=== PATIENT | male | born 1950 | race Caucasian/White ===

== ENCOUNTER 2016-11-08 16:49 | Emergency (ER) | payer MEDICARE, OTHER ==
[~2016-11-08] VITALS: Ht 180.3 cm; Wt 83.0 kg
[~2016-11-08 16:49] MED LIST: ACETAMINOPHEN500 MG PO; AQUAPHOR99 GM TOP; BENADRYL25 MG PO; BETAMETHASONE V15 G1 TOP; BETAMETHASONE V60 ML TOP; CETIRIZINE HCL10 MG PO; COUMADIN4 MG PO; COUMADIN5 MG PO; DILANTIN100 MG PO; KETOCONAZOLE15 GM TOP; LAC HYDRIN TOP; LACTULOSE10 GM/15 M PO; LASIX20 MG PO; LISINOPRIL10 MG PO; LOVENOX100 MG SUB-Q; METOPROLOL TART25 MG PO; MONTELUKAST SOD10 MG PO; MUPIROCIN22 GM TOP; NORCO 5-325 TA1 EACH PO; PRAVACHOL40 MG PO; PROZAC20 MG PO; PROZAC40 MG PO; TEMOVATE30 GM TOP; TRIAMCINOLONE A15 G1 TOP; VISTARIL50 MG PO; WARFARIN SODIUM4 MG PO; WARFARIN SODIUM5 MG PO; [UNRECOGNIZED DRUG - SUPPLY] TOP
[2016-11-08] MEDS ORDERED: WARFARIN SODIUM5 MG PO (17:16)
[2016-11-08] MEDS ORDERED: PROZAC40 MG PO (17:22)
[2016-11-08] MEDS ORDERED: ACID CONTROLLER20 MG PO (18:16)
[2016-11-08] MEDS ORDERED: BENADRYL25 MG PO (18:16)
[2017-01-31] MEDS ORDERED: BETAMETHASONE V15 G1 TOP (11:50)
== END 2016-11-08 18:38 | disposition home or self-care (01) ==
LOC: ED 16:49
DX: T78.3XXA Angioneurotic edema, initial encounter (principal); G40.909 Epilepsy, unspecified, not intractable, without status epilepticus; I73.9 Peripheral vascular disease, unspecified; Z95.0 Presence of cardiac pacemaker; Z86.73 Personal history of transient ischemic attack (TIA), and cerebral infarction without residual deficits; Z89.512 Acquired absence of left leg below knee; Z88.5 Allergy status to narcotic agent; Z79.01 Long term (current) use of anticoagulants; Z79.899 Other long term (current) drug therapy
CPT/HCPCS: 99283

== ENCOUNTER 2019-03-30 06:58 | Emergency (ER) | payer MEDICARE, OTHER ==
[~2019-03-30] VITALS: Ht 180.3 cm; Wt 83.0 kg
[~2019-03-30 06:58] MED LIST changes: +ACID CONTROLLER20 MG PO; +AMLODIPINE BESY10 MG PO; +CLONIDINE HCL0.1 MG PO; +DOXAZOSIN MESYLA8 MG PO; +LISINOPRIL20 MG PO; +METOPROLOL TART50 MG PO; +NORVASC5 MG PO; +VITAMIN A & D113 GM TOP
[2019-03-30] MEDS ORDERED: KEFLEX500 MG PO (08:35)
== END 2019-03-30 09:57 | disposition home or self-care (01) ==
LOC: ED 06:58
DX: L03.115 Cellulitis of right lower limb (principal); I69.920 Aphasia following unspecified cerebrovascular disease; I10 Essential (primary) hypertension; F32.9 Major depressive disorder, single episode, unspecified; D64.9 Anemia, unspecified; G40.909 Epilepsy, unspecified, not intractable, without status epilepticus; Z88.5 Allergy status to narcotic agent; Z88.8 Allergy status to other drugs, medicaments and biological substances; Z79.899 Other long term (current) drug therapy; Z79.01 Long term (current) use of anticoagulants
CPT/HCPCS: 36415; 70450; 80053; 80185; 84484; 85025; 85610; 99285-25; A9270

== ENCOUNTER 2021-04-25 18:13 | Emergency (ER) | payer MEDICARE, OTHER ==
[~2021-04-25] VITALS: Ht 180.3 cm; Wt 83.0 kg
[~2021-04-25 18:13] MED LIST changes: +CLARITIN10 M2 PO; +KEFLEX500 MG PO; +LASIX40 MG PO; +WARFARIN SODIU2.5 MG PO
[2021-04-25] MEDS ORDERED: LASIX40 MG PO (19:01)
[2021-04-25] MEDS ORDERED: HYDROCODON-ACE1 EA10 PO (19:59)
== END 2021-04-25 20:19 | disposition home or self-care (01) ==
LOC: ED 18:13
DX: S09.90XA Unspecified injury of head, initial encounter (principal); S41.112A Laceration without foreign body of left upper arm, initial encounter; S70.12XA Contusion of left thigh, initial encounter; I10 Essential (primary) hypertension; D64.9 Anemia, unspecified; G40.909 Epilepsy, unspecified, not intractable, without status epilepticus; Z88.8 Allergy status to other drugs, medicaments and biological substances; Z88.5 Allergy status to narcotic agent; Z79.899 Other long term (current) drug therapy; Z79.01 Long term (current) use of anticoagulants
CPT/HCPCS: 70450; 73552; 85610; 99284-25

== ENCOUNTER 2021-05-03 10:52 | Emergency (ER) | payer MEDICARE, OTHER ==
[~2021-05-03] VITALS: Ht 180.3 cm; Wt 83.0 kg
[~2021-05-03 10:52] MED LIST changes: +HYDROCODON-ACE1 EA10 PO
--- OUTSIDE RECORDS SUMMARY | 2021-05-03 13:38 | XMS ---
PreManage Notification: BATOOL CURRAN Security Customer Sales Specialist Events No recent Security Events currently on file CRITERIA MET - [facility] - 2 Visits in 30 Days CARE PROVIDERS Lyubov Andrade Adz Worker/Crane Operator Cab 01/29/2021-Current PHONE: [phone] Nita has no Care Guidelines for this patient. Radha VISIT COUNT (12 MO.) 2 [facility] TOTAL 2 NOTE: Visits indicate total known visits. ED/UCC VISIT TRACKING (12 MO.) 05/03/2021 10:54 [facility] [place] TYPE: Emergency COMPLAINT: - BLOOD IN URINE, WEAK 04/25/2021 18:13 [facility] [place] TYPE: Emergency COMPLAINT: - FALL,L LEG PAIN DIAGNOSES: - Laceration without foreign body of left upper arm, initial encounter - Epilepsy, unspecified, not intractable, without status epilepticus - Allergy status to other drugs, medicaments and biological substances - Anemia, unspecified - Essential (primary) hypertension - long-term (current) use of anticoagulants - Other halfway (current) drug therapy - Unspecified injury of head, initial encounter - Allergy status to narcotic agent - Contusion of left thigh, initial encounter INPATIENT VISIT TRACKING (12 MO.) No inpatient visits to display in this time frame [email or web address]
== END 2021-05-03 13:51 | disposition home or self-care (01) ==
LOC: ED 10:52
DX: S70.12XA Contusion of left thigh, initial encounter (principal); R79.1 Abnormal coagulation profile; W19.XXXA Unspecified fall, initial encounter; I10 Essential (primary) hypertension; D64.9 Anemia, unspecified; G40.909 Epilepsy, unspecified, not intractable, without status epilepticus; Z88.8 Allergy status to other drugs, medicaments and biological substances; Z88.5 Allergy status to narcotic agent; Z79.899 Other long term (current) drug therapy; Z79.01 Long term (current) use of anticoagulants
CPT/HCPCS: 51798; 80053; 80185; 81001; 85025; 85610; 99283-25

== ENCOUNTER 2021-05-06 09:40 | Emergency (ER) | payer MEDICARE, OTHER ==
[~2021-05-06] VITALS: Ht 180.3 cm; Wt 88.9 kg
--- OUTSIDE RECORDS SUMMARY | 2021-05-06 09:48 | XMS ---
PreManage Notification: BATOOL CURRAN Security Boardmarker Events No recent Security Events currently on file CRITERIA MET - [facility] - 2 Visits in 30 Days CARE PROVIDERS Lyubov Andrade Repair Operator/Carbon Lamp Cleaner 01/29/2021-Current PHONE: [phone] Nita has no Care Guidelines for this patient. Radha VISIT COUNT (12 MO.) 3 [facility] TOTAL 3 NOTE: Visits indicate total known visits. ED/UCC VISIT TRACKING (12 MO.) 05/06/2021 09:41 [facility] [place] TYPE: Emergency COMPLAINT: - ABDOMINAL PAIN 05/03/2021 10:54 [facility] [place] TYPE: Emergency COMPLAINT: - BLOOD IN URINE, WEAK DIAGNOSES: - Abnormal coagulation profile - Unspecified fall, initial encounter - Allergy status to other drugs, medicaments and biological substances - Contusion of left thigh, initial encounter - Anemia, unspecified - Other residential (current) drug therapy - Essential (primary) hypertension - shelter (current) use of anticoagulants - Epilepsy, unspecified, not intractable, without status epilepticus - Allergy status to narcotic agent 04/25/2021 18:13 [facility] [place] TYPE: Emergency COMPLAINT: - FALL,L LEG PAIN DIAGNOSES: - Laceration without foreign body of left upper arm, initial encounter - Epilepsy, unspecified, not intractable, without status epilepticus - Allergy status to other drugs, medicaments and biological substances - Anemia, unspecified - Essential (primary) hypertension - shelter (current) use of anticoagulants - Other terminal manager (current) drug therapy - Unspecified injury of head, initial encounter - Allergy status to narcotic agent - Contusion of left thigh, initial encounter INPATIENT VISIT TRACKING (12 MO.) No inpatient visits to display in this time frame [email or web address]
== END 2021-05-06 16:00 | disposition home or self-care (01) ==
LOC: ED 09:40
DX: S72.002A Fracture of unspecified part of neck of left femur, initial encounter for closed fracture (principal); R79.1 Abnormal coagulation profile; X58.XXXA Exposure to other specified factors, initial encounter; I10 Essential (primary) hypertension; D64.9 Anemia, unspecified; G40.909 Epilepsy, unspecified, not intractable, without status epilepticus; Z88.8 Allergy status to other drugs, medicaments and biological substances; Z88.5 Allergy status to narcotic agent; Z79.899 Other long term (current) drug therapy; Z79.01 Long term (current) use of anticoagulants
CPT/HCPCS: 74176; 80053; 80185; 81001; 85025; 85610; 99284-25

== ENCOUNTER 2021-06-15 13:14 | Emergency (ER) | payer MEDICARE, OTHER ==
[~2021-06-15] VITALS: Ht 180.3 cm; Wt 88.5 kg
[2021-06-15] MEDS ORDERED: NORVASC5 MG PO (13:30)
== END 2021-06-15 17:52 | disposition home or self-care (01) ==
LOC: ED 13:14
DX: R31.9 Hematuria, unspecified (principal); N28.89 Other specified disorders of kidney and ureter; Z79.01 Long term (current) use of anticoagulants; I10 Essential (primary) hypertension; D64.9 Anemia, unspecified; G40.909 Epilepsy, unspecified, not intractable, without status epilepticus; Z88.8 Allergy status to other drugs, medicaments and biological substances; Z88.5 Allergy status to narcotic agent; Z79.899 Other long term (current) drug therapy
CPT/HCPCS: 36415; 74178; 80053; 81001; 85025; 85610; 99284-25; J7030; Q9967

== ENCOUNTER 2022-03-02 20:38 | Inpatient (IN) | payer MEDICARE, OTHER ==
[~2022-03-02] VITALS: Ht 180.3 cm; Wt 90.2 kg
[~2022-03-02 20:38] MED LIST changes: -CLARITIN10 M2 PO; +CLARITIN10 MG PO; -TRIAMCINOLONE A15 G1 TOP; +TRIDERM28.4 GM TOP
[2022-03-02] MEDS ORDERED: NORVASC10 MG PO (21:48)
[2022-03-02] MEDS ORDERED: ACETAMINOPHEN325 M1 PO (21:48)
--- NOTE | 2022-03-03 00:15 | NUR ---
REPORT FROM ELDER RN IN ER - PT FROM [facility] ADMITS WITH HX OF STROKE- NON VERBAL YES/NO ANSWERS, ALERT/ORIENTED, DTG WITH HIM. LLE AMPUTATION, IV ABX STARTED IN ER - PT HAS CONDOM CATH IN PLACE. WILL FOLLOW IN ROOM 129
--- NOTE | 2022-03-03 00:20 | NUR ---
PT MOVED FROM ER STRECHER TO BED VIA STAFF LATERAL TRANSFER SLIDE. PT AND DAUGHTER ORIENTED TO ROOM, ADMISSION ASSESSMENT AND QUESTIONS FROM THIS RN, DTG REPORTS NO ADVANCE DIRECTIVE - PT FULL CODE CALL HER RITU AND SHE WILL DECIDED BASED ON SITUATION PT IS IN AT THE TIME. R AC IV WNL, PT TOLLERATED WATER AND ORIENTED TO CALL LIGHT. OXYGEN 3L NC AT THIS TIME. DTG IS GOING HOME BUT WANTS US TO CALL WITH CHANGES. DEPT CARD GIVEN TO HER SO SHE HAS OUR NUMBER TO CCU. PT SKIN WNL - ATTENDS AND CONDOM CATH IN PLACE. PT DENIES PAIN, SKIN WARM TO THE TOUCH WITH FEVER. MEDS GIVEN IN ER. LLE AMPUTATED, RIGHT LEG FLOATED ON PILLOW - SHEET OVER PT DUE TO FEVER. PT VISIBLE TO RN FROM DESK.
--- NOTE | 2022-03-03 02:30 | NUR ---
PT AFEBRILE 98, EYES CLOSED RESTING, RESP 18-20 AND HR 60-70.
--- NOTE | 2022-03-03 05:20 | NUR ---
lab in for blood draw, pt tollerated well - denies needs, sleepy, resp rate regular.
--- NOTE | 2022-03-03 06:13 | NUR ---
i/o complete - 50 ml of urine to parr bag, pt had no intake last 6 hrs as was mostly sleeping and sl iv. lungs dim/clear, vitals taken afebrile, denies pain or other needs closes eyes and back to sleep after this assessment. call light in reach.
--- NOTE | 2022-03-03 07:30 | NUR ---
PATIENT SHIFT REPORT RECIEVED FROM SYSTEMS MGR RN. PATIENT RESTING IN BED AT THIS TIME. PATIENTS DAUGHTER WILL BE IN THIS AM. PATIENT ON 2L OXYGEN OVERNIGHT. PATIENT IS SEMI NON-VERBAL. PATIENT CAN SAY YES AND SHAKE HEAD NO. WILL CONTINUE TO CLOSELY MONITOR.
--- NOTE | 2022-03-03 07:37 | NUR ---
discussed low urine output with day shift chargemaster specialist, note to dr asif to let him know status. pt continues to sleep.
--- NOTE | 2022-03-03 08:30 | NUR ---
PATIENTS ASSESSMENT COMPLETED. PATIENTS BREATH SOUNDS CLEAR IN THE UPPERS AND FINE CRACKLES NOTED IN THE BASES. PATIENT ON 2L NC. BOWEL TONES ACTIVE. PATIENT HAS A CONDOM CATH PRESENT. NO URINE NOTED IN CATHETER AT THIS TIME. PATIENT ALSO HAS AN ATTEND IN PLACE. PATIENT HAS AN AKA ON THE LEFT LEG. PATIENT IS WEAK ON THE LEFT HAND SIDE. RIGHT LEG HAS SOME MILD SWELLING.
--- NOTE | 2022-03-03 08:30 | NUR ---
PATIENT AWAKE IN BED, DAUGHTER AT BEDSIDE AT THIS TIME. VITALS CHARTED. CALL LIGHT IN EASY REACH
[2022-03-03] MEDS ORDERED: BENADRYL25 MG PO (08:38)
--- NOTE | 2022-03-03 08:53 | NUR ---
MED REC COMPLETE
--- NOTE | 2022-03-03 10:00 | NUR ---
PATIENTS DAUGHTER IN AND REVIEWED PLAN OF CARE WITH HER. PATIENT APPEARS TO BE AT HIS BASELINE PER HIS DAUGHTER WHO HELPS TAKE CARE OF HIM. PATIENT PASSED BEDSIDE SWALLOW EVAL THIS AM AND THEN SPEECH THERAPY IN AND WORKED WITH PATIENT. NO OTHER NEEDS AT THIS TIME. WILL CONTINUE TO CLOSELY MONITOR.
--- NOTE | 2022-03-03 11:15 | NUR ---
STAHL IN TO SEE PATIENT. REVIEWED PLAN OF CARE WITH PATIENT AND HIS DAUGHTER JOSÉ LUIS. NO OTHER QUESTIONS AT THIS TIME. ECHO ORDERED BUT IS UNAVAILABLE UNTIL 03/09/22. MD UPDATED. SEE NEW ORDERS. PATIENT WILL TRANSFER TO THE MEDICAL UNIT TODAY. WILL CONTINUE TO CLOSELY MONITOR.
--- NOTE | 2022-03-03 11:40 | NUR ---
OVER TO UNIT TO ASSESS PATIENT. PER KHLOE GAMING PATIENT HAVING DIFFICULTY ANSWER QUESTIONS AT THIS TIME. KHLOE GAMING STATES PATIENT DAUGHTER SEBASTIAN TO RETURN LATER THIS AFTERNOON AND WOULD BE ABLE TO ASSIT WITH ASSESSMENT. SPOKE WITH CYRIL GAMING AT [facility] PATIENT CURRENTLY RESIDES IN THEIR ASSISTED LIVING. PATIENT IS NORMALLY ACTIVE AND IS ABLE MOVE AROUND THE BUILDING IN HIS WC. PATIENT IS USUALLY NOT ALTERED AND IS ABLE TO MAKE COVERSATION. DISCUSSED DISCHARGE DISPOSITION WITH CYRIL GAMING, NOTES REQUESTED. WILL CONTACT CYRIL GAMING WHEN PATIENT IS CLOSER TO DISCHARGE.
--- NOTE | 2022-03-03 12:00 | NUR ---
PATIENT CHANGED AND REPOSITIONED. PATIENTS CONDOM CATH CAME OFF. REPORT GIVEN TO MICHAEL RN ON THE MEDICAL UNIT. MEDICTIONS ADMINISTERED PRIOR TO TRANSFER. BELONGINGS SENT WITH PATIENT. STAFF CALLED AND UPDATED DAUGHTER THAT PATIENT TRANSFERED TO THE MEDICAL UNIT TO ROOM 121. MICHAEL TRANSPORTED PATIENT TO NEW ROOM. NO OTHER QUESTIONS AT THIS TIME.
--- NOTE | 2022-03-03 12:11 | NUR ---
Report from Darian Ghosh RN. Patient moved from CCU room 129 to room 121 in med-surg in bed by this nurse. New Condom catheter replaced on patient. Repositioned in bed to eat. HOB elevated. Assist by aide to eat. Remains on room air. Assessment completed.
--- NOTE | 2022-03-03 14:15 | NUR ---
Resting in bed with eyes closed. Respirations even and unlabored. Condom catheter draining to urine collection bag with yellow, clear urine noted. Allowed to rest at this time. call light in reach, bed rails up X2, bed alarm activated.
--- NOTE | 2022-03-03 15:20 | EKG ---
[facility] [address] [place] [address] Signed Atrial-sensed ventricular-paced rhythm Abnormal ECG When compared with ECG of 07-AUG-2018 11:47, premature ventricular complexes are no longer present Vent. rate has increased BY 18 BPM Confirmed by NANCY STAHL MD ([id number]) on 03/03/2022 3:20:40 PM Electronically Signed By: NANCY STAHL MD 03/03/22 1520 PATIENT NAME: BATOOL CURRAN Electrocardiogram DATE OF : 46 PHYSICIAN: NANCY STAHL MD REPORT #: [id number] REPORT IS CONFIDENTIAL AND NOT TO BE RELEASED WITHOUT AUTHORIZATION
--- NOTE | 2022-03-03 18:05 | NUR ---
Ambulates to bathroom with standby assist. Continent of urine. Returns to recliner. Chair alarm on and beeps when patient sits.
--- NOTE | 2022-03-03 19:30 | NUR ---
THIS RN RECEIVED SHIFT REPORT FROM MEKHI RODRIGUEZ. PATIENT RESTING QUIETLY IN BED. PATIENT DENIES PAIN OR OTHER NEEDS AT THIS TIME. CALL LIGHT IS IN REACH.
--- NOTE | 2022-03-03 20:00 | NUR ---
IN TO GET VS, COND CATH EMPTIED
--- NOTE | 2022-03-03 20:40 | NUR ---
THIS RN IN TO SEE PATIENT. PATIENT ANSWERS SIMPLE QUESTIONS YES OR NO AND NODS OR SHAKES HIS HEAD. THIS RN WAS INFORMD IN REPORT TO TAKE PATIENT'S HEAD MOVEMENT THE ANSWER IF THE VERBAL RESPONSE DID NOT MATCH. PATIENT SAID HE WAS NOT IN PAIN AND HE WAS NOT NAUSEATED AND SHOOK HIS HEAD WELL TO BOTH QUESTIONS. LUNGS SOUND DIM THROUGHOUT, BUT PATIENT HAS NO SIGNS OF REPIRATORY DISTRESS OR SOB. PATIENT TURNED TO HIS RIGHT. PATIENT TOOK ALL HIS EVENING MEDS ONE AT A TIME FROM MY HAND, I WAS TOLD THAT IS THE WAY HE LIKES TO DO IT. PATIENT'S CONDOM CATH DRAINING FINE. PATIENT HAD NO OTHER CARE NEEDS AT THIS TIME. CALL LIGHT IN REACH AND BED ALARM IS ON.
--- NOTE | 2022-03-04 00:26 | NUR ---
THIS RN IN TO CHECK ON PATIENT. PATIENT STIRRED WHEN I LOOKED IN THE ROOM SO I WENT IN AND ASKED HIM IF HE NEEDED ANYTHING AND HE SAID,"NO". ASKED IF WAS WARM ENOUGH AND HE SAID, "YES". THIS RN ASKED IF EVERYTHING WAS OK AND THE PATIENT GAVE ME A BIG THUMBS UP. PATIENT TURNED TO HIS LEFT SIDE FOR NOW. CALL LIGHT IN REACH AND PATIENT'S ROOM IS NEXT TO THE NURSES STATION WITH THE DOOR SLIGHTLY OPEN SO WE CAN HEAR THE PATIENT IF HE CALLS. BED ALARM IS ON.
--- NOTE | 2022-03-04 01:56 | NUR ---
PATIENT RESTING QUIETLY IN SEMI-FOWLERS POSITION IN BED, EYES CLOSED, RESPIRATIONS ARE REGULAR AND EVEN, CALL LIGHT IN REACH, AND BED ALARM IS ON. PATIENT HAS NO NURSE CARE NEEDS AT THIS TIME.
--- NOTE | 2022-03-04 03:45 | NUR ---
PATIENT RESTING QUIETLY IN LOW FOWLERS POSITION, EYES CLOSED, RESPIRATIONS ARE REGULAR AND EVEN, CALL LIGHT IN REACH, AND BED ALARM IS ON. PATIENT HAS NO NURSE CARE NEEDS AT THIS TIME.
--- NOTE | 2022-03-04 05:22 | NUR ---
THIS RN IN TO ASSESS PATIENT. PATIENT'S CONDOM CATH HAS COME OFF AND PATIENT NEEDED A COMPLETE BED CHANGE AND WASH UP DONE BY THIS RN AND VIRI BAIN. PATIENT ALL DRY NOW AND NEW CONDOM CATH IN PLACE AND NEW ATTENDS ON. PATIENT DENIES PAIN. WHEN ASKED IS THE CONDOM CATH IS OK HE SAYS YES AND NODS. IV FLUSHED A ND WNL. PATIENTHAS NO OTHER CARE NEEDS AT THIS TIME. CALL LIGHT IN REACH AND LAB HERE TO DO LAB DRAW.
--- NOTE | 2022-03-04 06:40 | NUR ---
8591 CHARGE NURSE IS WALKING PAST THE PATIENT'S ROOM AND PATIENT IS ON HIS BACKSIDE SITTING ON THE FLOOR LOOKING OUT THE DOOR INTO THE HALLWAY AND CALLED THIS RN. PATIENT HAS NO SIGNS OF INJURY ANYWHERE. WHEN ASKING PATIENT IF HE HIT HIS HEAD WHEN HE GOT OUT OF BED HE SHAKES HIS HEAD AND SAYS NO. NO BRUISES NOTED TO BACKSIDE AND NO NEW BRUISES ANYWHERE. PUPILS ADRY. PATIENT TRYING TO CONVERSE AND SEEMS A BIT FRUSTRATED. CONDOM CATH IS OFF AGAIN. PATIENT NICOLAS LIFTED BACK TO BED WITH THIS RN, [place] LEAD CUSTOMER SERVICE REPRESENTATIVE, AND VIRI BAIN. PATIENT TRYING TO WRITE ON A PAPER, BUT IT IS NOT LEGIBLE. VS ARE STABLE. IV IS INTACT AND FLUSHES. TAYA REMAINS IN ROOM WITH PATIENT AND BED ALARM IS ON. THIS RN CALLED TO INFORM HIM OF PATIENT GETTING OUT OF BED AND FOUND SITTING ON THE FLOOR AND THAT THERE ARE NO SIGNS OF INJURY. NO ORDERS GIVEN TO THIS RN AT THIS TIME. THIS RN CALLED AND INFORMED PATIENT'S DAUGHTER SEBASTIAN THAT PATIENT HAD GOTTEN OUT OF BED AND WAS FOUND SITTING ON THE FLOOR. DAUGHTER ASKED THAT WE TRY TO COMMUNICATE TO SEE IF HE NEEDS TO HAVE A BM AND TO TELL THE PATIENT SHE WILL BE IN TO SEE HIM IN ABOUT 1.5HRS. THIS RN TRIED TO ASK PATIENT IF HE NEEDED TO HAVE A BM AND HE SAYS NO AND SHAKES HIS HEAD. INFORMED PATIENT GAUGHTER WOULD BE IN TO SEE HIM IN AN HOUR AND A HALF AND THIS SEEMED TO SETTLE PATIENT DOWN. BED ALARM IS ON AND PATIENT CAN BE SEEN FROM THE NURSES STATION DESK. CALL LIGHT IN REACH.
--- NOTE | 2022-03-04 07:58 | NUR ---
PATIENT UP IN CHAIR FOR MEAL. AM CARE COMPLETED. ICE WATER GIVEN, AND CHAIR ALARM SET. PT HAS NO OTHER NEEDS AT THIS TIME. CALL LIGHT WITHIN REACH.
--- NOTE | 2022-03-04 10:18 | NUR ---
PATIENT UP IN CHAIR AFTER MEAL. VITALS AND I/O'S ARE COMPLETED. PT HAS NO OTHER NEEDS AT THIS TIME. FAMILY IN ROOM, BED ALARM SET, AND THE CALL LIGHT IS WITHIN REACH.
--- NOTE | 2022-03-04 10:46 | NUR ---
CALL PLACED TO HOPE AT [facility], UPDATED OF PLAN FOR DISCHARGE. PATIENT MUST BE A 1 PERSON PIVOT TRANSFER TO THE IN ORDER TO DISCHARGE BACK TO FACILITY. DISCUSSED WITH DR. STAHL AND DAUGHTER SEBASTIAN. SEBASTIAN UPSET THAT [facility] IS REQUESTING EVALUATION SHE STATES THE PATIENT IS READY TO GO HOME. EXPLAINED THAT UNFORTUNITY WE HAVE TO HAVE DOCUMENT THAT THE PATIENT HAS RETURNED TO BASELINE TRANSFER BEFORE THEY WILL ACCEPT HIM BACK. SEBASTIAN REQUESTING TO GO GET THE PATIENT SHOE AND WC PRIOR TO EVALUATION. SHE STATES SHE WILL ALSO SPEAK WITH STAFF AT [facility] PRIOR TO THE EVALUATION. DR. STAHL AND [place] PT UPDATED OF PLAN.
--- NOTE | 2022-03-04 11:12 | NUR ---
DAUGHTER AT BEDSIDE ASSISTING PT WITH DRESSING. PT ABLE TO SCOOT SELF TO EDGE OF CAHIR AND PIVOT WITH ASSISTANCE FROM DAUGHTER TO WC. PT DID WELL. MARIBELL REPORTS THIS IS BASELINE TRANSFER FOR PT. IV DC'D AND WNL.
--- NOTE | 2022-03-04 11:40 | NUR ---
DISCHARGE ORDERS AND H&P FAXED TO [facility]. DAUGHTER HERE TO TRANSPORT PATIENT BACK TO [facility].
== END 2022-03-04 11:45 | disposition home or self-care (01) | DRG 291 ==
LOC: ED 20:38 → CCU 23:23 → MS 23:23
PROVIDERS: ADMIT Internal Medicine; ATTEND Internal Medicine
DX: I13.0 Hypertensive heart and chronic kidney disease with heart failure and stage 1 through stage 4 chronic kidney disease, or unspecified chronic kidney disease (principal); I50.23 Acute on chronic systolic (congestive) heart failure; J96.01 Acute respiratory failure with hypoxia; J18.9 Pneumonia, unspecified organism; R47.01 Aphasia; G81.94 Hemiplegia, unspecified affecting left nondominant side; N17.9 Acute kidney failure, unspecified; I49.9 Cardiac arrhythmia, unspecified; N18.32 Chronic kidney disease, stage 3b; I25.10 Atherosclerotic heart disease of native coronary artery without angina pectoris; E78.00 Pure hypercholesterolemia, unspecified; G40.909 Epilepsy, unspecified, not intractable, without status epilepticus; F32.A Depression, unspecified; Z20.822 Contact with and (suspected) exposure to COVID-19; B86 Scabies; D63.1 Anemia in chronic kidney disease; B35.3 Tinea pedis; Z98.52 Vasectomy status; Z95.0 Presence of cardiac pacemaker; Z95.1 Presence of aortocoronary bypass graft; Z86.73 Personal history of transient ischemic attack (TIA), and cerebral infarction without residual deficits; Z88.5 Allergy status to narcotic agent; Z88.8 Allergy status to other drugs, medicaments and biological substances; Z89.612 Acquired absence of left leg above knee; Z95.2 Presence of prosthetic heart valve; Z79.899 Other long term (current) drug therapy; Z79.01 Long term (current) use of anticoagulants
CPT/HCPCS: 36415; 51798; 71045; 71250; 80053; 81001; 83605; 83735; 83880; 85025; 85610; 85730; 87040; 87502; 93005; 93010; 99285-25; A9270; J0295; J0456; J1940; J7060; U0003

== ENCOUNTER 2022-03-29 13:51 | Emergency (ER) | payer MEDICARE, OTHER ==
[~2022-03-29] VITALS: Ht 180.3 cm; Wt 89.8 kg
[~2022-03-29 13:51] MED LIST changes: +ACETAMINOPHEN325 M1 PO; +NORVASC10 MG PO
--- OUTSIDE RECORDS SUMMARY | 2022-03-29 13:58 | XMS ---
PreManage Notification: BATOOL CURRAN Security Systems Eng Events No recent Security Events currently on file CRITERIA MET - [facility] - 2 Visits in 30 Days CARE PROVIDERS GOLDEN ALVA Rendering Equipment Tender/Copper Plater 05/10/2021-Current PHONE: [phone] Tino Daly Rendering Equipment Tender/Copper Plater 03/01/2022-Current PHONE: [phone] Nita has no Care Guidelines for this patient. EPer VISIT COUNT (12 MO.) [address] [place] [address] TOTAL 6 NOTE: Visits indicate total known visits. ED/UCC VISIT TRACKING (12 MO.) 03/29/2022 13:[address] [facility] [facility] [place] TYPE: Emergency COMPLAINT: - COLD SYMPTOMS 03/02/2022 20:[address] [facility] [place] TYPE: Emergency COMPLAINT: - SHORTNESS OF BREATH 06/15/2021 13:[address] [facility] [facility] [place] TYPE: Emergency COMPLAINT: - URINATING BLOOD DIAGNOSES: - Other emt intermediate (current) drug therapy - Essential (primary) hypertension - Hematuria, unspecified - emt intermediate (current) use of anticoagulants - Anemia, unspecified - Allergy status to other drugs, medicaments and biological substances - Other specified disorders of kidney and ureter - Allergy status to narcotic agent - Epilepsy, unspecified, not intractable, without status epilepticus 05/06/2021 09:41 [facility] [place] TYPE: Emergency COMPLAINT: - ABDOMINAL PAIN DIAGNOSES: - Essential (primary) hypertension - Fracture of unspecified part of neck of left femur, initial encounter for closed fracture - Epilepsy, unspecified, not intractable, without status epilepticus - Allergy status to narcotic agent - Allergy status to other drugs, medicaments and biological substances - [facility] (current) use of anticoagulants - Anemia, unspecified - Other correction (current) drug therapy - Abnormal coagulation profile - Exposure to other specified factors, initial encounter - Weakness 05/03/2021 10:54 [facility] [place] TYPE: Emergency COMPLAINT: - BLOOD IN URINE, WEAK DIAGNOSES: - Allergy status to narcotic agent - Abnormal coagulation profile - emt intermediate (current) use of anticoagulants - Other correction (current) drug therapy - Contusion of left thigh, initial encounter - Unspecified fall, initial encounter - Epilepsy, unspecified, not intractable, without status epilepticus - Essential (primary) hypertension - Anemia, unspecified - Allergy status to other drugs, medicaments and biological substances 04/25/2021 18:13 [facility] [place] TYPE: Emergency COMPLAINT: - FALL,L LEG PAIN DIAGNOSES: - Contusion of left thigh, initial encounter - Laceration without foreign body of left upper arm, initial encounter - Unspecified injury of head, initial encounter - [facility] (current) use of anticoagulants - Anemia, unspecified - Epilepsy, unspecified, not intractable, without status epilepticus - Allergy status to narcotic agent - Other correction (current) drug therapy - Essential (primary) hypertension - Allergy status to other drugs, medicaments and biological substances INPATIENT VISIT TRACKING (12 MO.) 03/02/2022 23:23 [facility] [place] TYPE: Medical Surgical COMPLAINT: - PNEUMONIA, CHF EXAC, ACUTE ON CHRONIC RENAL FAILUR DIAGNOSES: - Presence of prosthetic heart valve - Other correction (current) drug therapy - Other emt intermediate (current) drug therapy - Cardiac arrhythmia, unspecified - Acute on chronic systolic (congestive) heart failure - Contact with and (suspected) exposure to COVID-19 - Aphasia following cerebral infarction - Pneumonia, unspecified organism - Hemiplegia and hemiparesis following cerebral infarction affecting left non-dominant side - Depression, unspecified - Hypertensive heart and chronic kidney disease with heart failure and stage 1 through stage 4 chronic kidney disease, or unspecified chronic kidney disease - Presence of cardiac pacemaker - Epilepsy, unspecified, not intractable, without status epilepticus - Hemiplegia, unspecified affecting left nondominant side - Acute on chronic systolic (congestive) heart failure - Allergy status to other drugs, medicaments and biological substances - Contact with and (suspected) exposure to COVID-19 - Aphasia - Pure hypercholesterolemia, unspecified - Tinea pedis - Shortness of breath - Allergy status to narcotic agent - 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 - Cardiac arrhythmia, unspecified - Acquired absence of left leg above knee - Pure hypercholesterolemia, unspecified - Scabies - Depression, unspecified - Pneumonia, unspecified organism - Anemia in chronic kidney disease - Scabies - 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 - Presence of cardiac pacemaker - Acute kidney failure, unspecified - Presence of prosthetic heart valve - Hypertensive heart and chronic kidney disease with heart failure and stage 1 through stage 4 chronic kidney disease, or unspecified chronic kidney disease - Vasectomy status - Acquired absence of left leg above knee - Acute respiratory failure with hypoxia - emt intermediate (current) use of anticoagulants - Acute kidney failure, unspecified - Acute respiratory failure with hypoxia - Chronic kidney disease, stage 3b - Personal history of transient ischemic attack (TIA), and cerebral infarction without residual deficits - Chronic kidney disease, stage 3b - Epilepsy, unspecified, not intractable, without status epilepticus - Anemia in chronic kidney disease - Allergy status to other drugs, medicaments and biological substances - Allergy status to narcotic agent - Presence of aortocoronary bypass graft - Personal history of transient ischemic attack (TIA), and cerebral infarction without residual deficits - Tinea pedis - Hemiplegia, unspecified affecting left nondominant side - Presence of aortocoronary bypass graft - Vasectomy status - [facility] (current) use of anticoagulants - Aphasia [email or web address]
[2022-03-29] MEDS ORDERED: ONDANSETRON ODT8 MG PO (15:53)
[2022-03-29] MEDS ORDERED: LOMOTIL TABLET1 EACH PO (15:53)
== END 2022-03-29 16:47 | disposition home or self-care (01) ==
LOC: ED 13:51
DX: B34.9 Viral infection, unspecified (principal); Z20.822 Contact with and (suspected) exposure to COVID-19; G40.909 Epilepsy, unspecified, not intractable, without status epilepticus; I10 Essential (primary) hypertension; Z86.73 Personal history of transient ischemic attack (TIA), and cerebral infarction without residual deficits; D64.9 Anemia, unspecified; Z88.6 Allergy status to analgesic agent; Z88.8 Allergy status to other drugs, medicaments and biological substances; Z88.5 Allergy status to narcotic agent; Z79.899 Other long term (current) drug therapy; Z79.01 Long term (current) use of anticoagulants
CPT/HCPCS: 36415; 71045; 80053; 81001; 83605; 85025; 85060; 85730; 87502; 96361; 96374; 99284-25; A9270; C9803; J2405; J7030; U0003